=== PATIENT | male | born 1985 | race Caucasian/White ===

== ENCOUNTER 2018-07-14 01:09 | Emergency (ER) | payer MEDICAID, SELFPAY ==
[2018-07-14 01:11] VITALS: BP 119/83; PULSE 83; RESP 16; TEMP 36.1; O2SAT 100; BMI 20.4
--- NOTE | 2018-07-14 02:25 | RAD_ITS ---
STUDY: X-RAY - RIGHT HAND REASON FOR EXAM: Male, 32 years old. Pain TECHNIQUE: 3 view(s) of the hand. COMPARISON: None. FINDINGS: Normal radiocarpal articulation. Normal distal radioulnar joint. Normal visualized carpal bones. Normal carpal articulations Normal carpometacarpal articulation of the thumb. Normal second through fifth carpometacarpal joints. Normal metacarpi. Normal metacarpophalangeal joint of the thumb. Normal interphalangeal joint of the thumb. Normal proximal and distal phalanges of the thumb. Normal metacarpophalangeal joints of the second through fifth fingers. Normal proximal and distal interphalangeal joints of the second through fifth fingers. Normal phalanges of the second through fifth fingers. There is generalized soft tissue swelling. RAD/Hand Min 3 Views IMPRESSION: There is generalized soft tissue swelling. There is NO acute bony abnormality. Electronically Signed: Sorin Fiore MD at 3:33 EDT , Service support ,
--- NOTE | 2018-07-14 03:08 | ED.VIS.GEN ---
History of Present Illness Chief Complaint: Edema Informant: Patient Onset: Days - 10 Context: Gradual Onset Timing: Intermittent Quality: sore, swollen Location: right hand Current Severity: Moderate Maximum Severity: Moderate Worsened by: using hand Relieved by: remaining still Associated Symptoms: redness Narrative: Patient states of the past 10 days, he has been experiencing right hand pain, swelling, redness that has started out of nowhere. He denies any injury. He has a history of drug use but states not recently and he has injected nothing into his right hand. He had a tendon injury in 2013 for which she had right hand surgery for but nothing recently. That was done by Dr. hill locally. He states 10 days ago, this occurred and lasted for 3 days or so and then got better on its own, and for the last several days it has been doing it again. He states it is more red and swollen and painful even just in the last 12 hours. He denies any systemic symptoms or fevers or streaking up his arm. States he has been using his hands to do things around the inside of the house but had no injuries, scrapes, foreign bodies, or any other obvious possible explanation for this that he can think of. Prior similar symptoms: No Past Medical History - Allergies and Home Meds Allergies/Adverse Reactions: Allergies No Known Allergies Allergy (Verified 07/14/18 01:15) Primary Care Physician: Calvin Hill MD [STAFF PHYSICIAN] - 3-5 Days Past Medical History: None Smoking Status: Current every day smoker Drugs: None - denies Review of Systems General: Denies: Chills, Fever Musculoskeletal: Reports: Swelling - R hand only, Extremity Pain - R hand only Skin: Reports: Rash - redness R hand. no other rashes.. Denies: Abrasions, Wounds Neurological: Reports: Parasthesia - off and on r hand/fingers. Denies: Headache, Weakness Physical Exam Vital Signs/Narrative: Vital Signs Temp Pulse Resp BP Pulse Ox 07/14/18 01:11 97.0 F L 83 16 119/83 H 100 Inital Vital Signs reviewed: Yes General: Well nourished, Well developed Head: Normocephalic, Atraumatic Extremities: Tenderness - and swollen/erythemetous dorsal entire R hand. no fluctuance or crepitance / SQ emphysema. no clear nidus for infection. hand is warm c/w forearm. Skin: No rash, - - R hand dorsum is erythematous diffusely. no lymphangitis. Neurological: Alert, Oriented x3, Cranial nerves II-XII grossly intact, Normal Strength, Normal Sensation Psychological: - - anxious. trouble keeping his RUE still for exam. Diagnostic/Tx/Re-eval Clinical Impression(s) from Imaging Studies Hand X-Ray 07/14/18 02:25 IMPRESSION: There is generalized soft tissue swelling. There is NO acute bony abnormality. Electronically Signed: Sorin Fiore MD at 3:33 EDT , Service support , - Medical Decision Making X-ray is normal. Will place him on Keflex to treat infection/cellulitis until proven otherwise, he is advised to follow-up with nuno, or return if worse. I do not think further testing is indicated or necessary at this time, as the test that I have available to me at this hour are unlikely to change this treatment given his lack of any other systemic symptoms or lymphangitis. ED Disposition - Plan for ED Patient: Disposition: Home or Assisted Living Chief Complaint: Edema Diagnosis: Cellulitis of hand, right Instructions: ED Infec Skin Cellulitis Prescriptions: RX: Cephalexin 500 mg PO 4X/DAY #40 cap Referrals: Calvin Hill MD [STAFF PHYSICIAN] - 3-5 Days
[2018-07-14] MEDS: Cephalexin 250 MG Capsule 500 MG PO (03:19)
[2018-07-14 03:21] VITALS: RESP 16
== END 2018-07-14 03:21 | disposition home or self-care (01) ==
PROVIDERS: Emergency Provider Emergency Medicine
DX: L03.113 Cellulitis of right upper limb (principal); B96.89 Other specified bacterial agents as the cause of diseases classified elsewhere; F17.200 Nicotine dependence, unspecified, uncomplicated
CPT/HCPCS: 73130; 99283

== ENCOUNTER → 2018-07-27 12:20 | Outpatient (CLI) | payer MEDICAID, SELFPAY ==
--- NOTE | 2018-07-27 12:28 | RAD_ITS ---
STUDY: X-RAY - RIGHT HAND REASON FOR EXAM: Swelling across metacarpals, fall. TECHNIQUE: 3 view(s) of the hand. COMPARISON: Radiographs 07/14/2018. FINDINGS: Normal radiocarpal articulation. Normal distal radioulnar joint. Normal visualized carpal bones. Normal carpal articulations Normal carpometacarpal articulation of the thumb. Normal second through fifth carpometacarpal joints. Normal metacarpi. Normal metacarpophalangeal joint of the thumb. Normal interphalangeal joint of the thumb. Normal proximal and distal phalanges of the thumb. Normal metacarpophalangeal joints of the second through fifth fingers. Normal proximal and distal interphalangeal joints of the second through fifth fingers. Normal phalanges of the second through fifth fingers. There is soft tissue swelling at the dorsal aspect of the proximal hand. RAD/Hand Min 3 Views IMPRESSION: Soft tissue swelling. No demonstrated fracture. Electronically Signed: Robbi Friend MD at 13:37 EST Tel , Service support ,
--- NOTE | 2018-07-27 12:29 | RAD_ITS ---
STUDY: X-RAY - RIGHT WRIST REASON FOR EXAM: Male, 33 years old. Soft tissue swelling following a fall. TECHNIQUE: 3 view(s) of the wrist were obtained. COMPARISON: None. FINDINGS: Normal visualized distal radius and ulna. Normal radiocarpal articulation. Normal distal radioulnar articulation. Normal carpal bones. Normal carpal articulations. Normal carpometacarpal articulation of the thumb. Normal second through fifth carpometacarpal articulations. Normal visualized metacarpal bones. Soft tissue swelling. RAD/Wrist min 3 Views IMPRESSION: Soft tissue swelling. Electronically Signed: Donald Bernal MD at 13:27 EST Tel [phone], Service support ,
== END ==
PROVIDERS: Referring Provider Physician Assistant; Visit Provider Physician Assistant
DX: M79.641 Pain in right hand (principal); M79.89 Other specified soft tissue disorders; M25.531 Pain in right wrist; M25.431 Effusion, right wrist
CPT/HCPCS: 73110; 73130

== ENCOUNTER → 2018-11-07 18:33 | Outpatient (CLI) | payer MEDICAID, SELFPAY ==
[2018-11-07 21:57] LABS: M R Staph aureus DNA By PCR Negative (Negative); Probe Check PASS; Specimen Processing Control PASS; Staph aureus DNA By PCR NEGATIVE (Negative)
== END ==
PROVIDERS: Referring Provider Podiatrist; Visit Provider Podiatrist
DX: S90.852A Superficial foreign body, left foot, initial encounter (principal)
CPT/HCPCS: 87070; 87075; 87077; 87186; 87205; 87640

== ENCOUNTER 2019-11-21 13:40 | Emergency (ER) | payer MEDICAID, SELFPAY ==
[2019-11-21 13:42] VITALS: BP 121/96; PULSE 92; RESP 17; TEMP 36.9; O2SAT 100; BMI 22.5
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
== END 2019-11-21 15:42 | disposition home or self-care (01) ==
LOC: ED 15:40
PROVIDERS: Emergency Provider Emergency Medicine
DX: F22 Delusional disorders (principal); Z72.0 Tobacco use
CPT/HCPCS: 99283

== ENCOUNTER 2020-01-20 15:11 | Emergency (ER) | payer MEDICAID, SELFPAY ==
[2020-01-20] VITALS (10 sets, daily range): BP systolic 101–159; BP diastolic 72–127; PULSE 81–126; RESP 14–24; TEMP 36.8–37.1; O2SAT 96–100; BMI 21.2
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
[2020-01-20] MEDS: Ziprasidone IM 20 MG/ML VIAL IM (15:30)
[2020-01-20 15:48] LABS: Absolute Lymphocyte Count 1.62 X10^3/uL (0.83-4.51); Absolute Neutrophil Count 5.3 X10^3/uL (2.0-7.7); Basophil# 0.05 X10^3/uL; Basophil% 0.6 % (0-1); Eosinophil# 0.13 X10^3/uL; Eosinophils% 1.7 % (0-5); Hematocrit 39.5 % (40-54); Hemoglobin 13.5 g/dL (13.0-16.5); Lymphocyte # 1.62 X10^3/ul (4.0); Lymphocyte % 20.7 % (19-41); Mean Corp Hgb Conc 34.2 g/dL (32-36); Mean Corpuscular Hgb 30.3 pg (27.0-32.0); Mean Corpuscular Volume 88.6 fL (80-94); Mean Platelet Vol. 10.7 fl (6.2-12.0); Monocyte# 0.76 X10^3/uL; Monocyte% 9.7 % (0-10); NRBC Flagged by Analyzer 0 % (0-5); Neutrophil # 5.25 X10^3/uL (2.7-7.7); Platelet Count 174 K/mm3 (150-450); RBC Distribution Width SD 42.3 fl (35.1-43.9); Red Blood Count 4.46 M/mm3 (4.6-6.2); White Blood Count 7.8 K/mm3 (4.4-11.0)
[2020-01-20 16:03] LABS: Acetaminophen (Tylenol) Level < 2.0 ug/mL (10.0-30.0); Salicylate 3.4 mg/dL (2.8-20.0)
[2020-01-20 16:05] LABS: ALB/GLOB Ratio 1.4 RATIO (0.9-2.4); AST(SGOT) 32 U/L (15-37); Alanine Aminotransfer ALT/SGPT 33 U/L (16-61); Albumin, Serum 4.2 g/dL (3.2-5.0); Alkaline Phosphatase 58 U/L (45-117); Anion Gap 5 (5-15); BUN 15 mg/dL (7-18); BUN/Creat Ratio 20.4 RATIO (10-20); Chloride 110 mmol/L (98-107); Creatinine, Serum 0.74 mg/dL (0.70-1.30); EST Glomerular Filtration Rate 129 mL/min (>60); Est Glom Filt Rate - Afr Amer 156 mL/min (>60); Estimated Creatinine Clearance 148.81 ml/min; Glucose 95 mg/dL (74-106); Potassium 4.3 mmol/L (3.5-5.1); Protein, Total 7.2 g/dL (6.4-8.2); Sodium Level 140 mmol/L (136-145)
[2020-01-20 16:21] LABS: Amphetamine Urine VISTA NEGATIVE (<1000 ng/mL); Barbiturate Urine VISTA NEGATIVE (< 200 ng/mL); Benzodiazepine Urine VISTA NEGATIVE (< 200 ng/mL); Cocaine Urine VISTA NEGATIVE (< 300 ng/mL); Ecstacy Urine VISTA NEGATIVE (< 500 ng/mL); Methadone Urine VISTA NEGATIVE (< 300 ng/mL); PCP Urine VISTA NEGATIVE (< 25 ng/mL); THC Urine VISTA NEGATIVE (< 50 ng/mL); Vista UDS pH Range 5
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
--- NOTE | 2020-01-20 17:06 | NURSING ---
FAXED CHART TO [facility]
[2020-01-20] MEDS: Albuterol 2.5 MG/3 ML VIAL.NEB. INHALATION (19:38)
[2020-01-20] MEDS: DiphenhydrAMINE 25 MG Capsule 50 MG PO (20:35)
--- NOTE | 2020-01-20 21:28 | NURSING ---
ACCEPTED TO [facility] BY DR. GARCIA 1500 UNIT [phone]
== END 2020-01-20 22:26 ==
LOC: ED 16:12
PROVIDERS: Emergency Provider Emergency Medicine
DX: F30.9 Manic episode, unspecified (principal); R45.851 Suicidal ideations
CPT/HCPCS: 36415; 80053; 80307; 80320; 80329; 85025; 94640; 96372; 99285; G0480; J3486

== ENCOUNTER → 2020-02-21 14:59 | Outpatient (CLI) | payer MEDICAID, SELFPAY ==
[2020-01-20 15:13] VITALS: BMI 21.2
[2020-02-21 17:27] LABS: Absolute Lymphocyte Count 1.76 X10^3/uL (0.83-4.51); Absolute Neutrophil Count 4.1 X10^3/uL (2.0-7.7); Basophil# 0.05 X10^3/uL; Basophil% 0.7 % (0-1); Eosinophil# 0.25 X10^3/uL; Eosinophils% 3.6 % (0-5); Hematocrit 42.7 % (40-54); Hemoglobin 14.4 g/dL (13.0-16.5); Lymphocyte # 1.76 X10^3/ul (4.0); Lymphocyte % 25.1 % (19-41); Mean Corp Hgb Conc 33.7 g/dL (32-36); Mean Corpuscular Hgb 30.6 pg (27.0-32.0); Mean Corpuscular Volume 90.9 fL (80-94); Monocyte% 11.4 % (0-10); NRBC Flagged by Analyzer 0 % (0-5); Neutrophil # 4.13 X10^3/uL (2.7-7.7); Neutrophil % 58.9 % (47-70); Platelet Count 193 K/mm3 (150-450); RBC Distribution Width CV 12.6 % (11.6-14.6); RBC Distribution Width SD 42.2 fl (35.1-43.9)
[2020-02-21 17:42] LABS: Vitamin B12 712 pg/mL (211-911); Vitamin D,25 Hydroxy 27.5 ng/mL
[2020-02-21 17:50] LABS: ALB/GLOB Ratio 1.1 RATIO (0.9-2.4); AST(SGOT) 38 U/L (15-37); Alanine Aminotransfer ALT/SGPT 36 U/L (16-61); Alkaline Phosphatase 64 U/L (45-117); Anion Gap 7 (5-15); BUN 15 mg/dL (7-18); BUN/Creat Ratio 18.8 RATIO (10-20); Calcium,Total 8.8 mg/dL (8.5-10.1); Chloride 102 mmol/L (98-107); EST Glomerular Filtration Rate 118 mL/min (>60); Est Glom Filt Rate - Afr Amer 143 mL/min (>60); Globulin 3.5 g/dL (2.2-4.2); Glucose 63 mg/dL (74-106); Potassium 4.6 mmol/L (3.5-5.1); Protein, Total 7.5 g/dL (6.4-8.2); Sodium Level 136 mmol/L (136-145); Thyroid Stim Hormone (TSH) 0.93 uIU/mL (0.358-3.74)
[2020-02-21 18:07] LABS: Amphetamine Urine VISTA NEGATIVE (<1000 ng/mL); Barbiturate Urine VISTA NEGATIVE (< 200 ng/mL); Benzodiazepine Urine VISTA NEGATIVE (< 200 ng/mL); Cocaine Urine VISTA NEGATIVE (< 300 ng/mL); Ecstacy Urine VISTA NEGATIVE (< 500 ng/mL); Methadone Urine VISTA NEGATIVE (< 300 ng/mL); PCP Urine VISTA NEGATIVE (< 25 ng/mL); THC Urine VISTA NEGATIVE (< 50 ng/mL); Vista UDS pH Range 5
== END ==
PROVIDERS: PCP Family Medicine; Referring Provider Family Medicine; Visit Provider Family Medicine
DX: F19.20 Other psychoactive substance dependence, uncomplicated (principal); R53.83 Other fatigue
CPT/HCPCS: 36415; 80053; 80307; 82306; 82607; 84443; 85025

== ENCOUNTER 2020-06-23 12:24 | Emergency (ER) | payer MEDICAID, SELFPAY ==
[2020-01-20 15:13] VITALS: BMI 21.2
[2020-06-23 12:24] VITALS: BP 159/102; PULSE 113; RESP 20; TEMP 36.6; O2SAT 97; BMI 21.1
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
[2020-06-23] MEDS: Diphth,Pertuss(Acell),Tet Vac 0.5 ML Vial IM (15:39)
[2020-06-23] MEDS: Silver Sulfadiazine 1% Crm 50 gm Bottle 1 APPLIC TOPICAL (15:40)
[2020-06-23 15:54] VITALS: BP 148/88; PULSE 105; RESP 17; O2SAT 96
== END 2020-06-23 15:55 | disposition home or self-care (01) ==
PROVIDERS: Emergency Provider Emergency Medicine; PCP Family Medicine
DX: T24.002A Burn of unspecified degree of unspecified site of left lower limb, except ankle and foot, initial encounter (principal); W39.XXXA Discharge of firework, initial encounter
CPT/HCPCS: 90471; 90715; 99282

== ENCOUNTER 2020-07-19 14:09 | Emergency (ER) | payer MEDICAID, SELFPAY ==
[2020-07-19 14:10] VITALS: BP 111/82; PULSE 117; RESP 18; TEMP 35.7; O2SAT 98; BMI 21.7
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
--- NOTE | 2020-07-19 14:20 | ED.VISSUMM ---
- ER Visit Summary Date of Service: 07/19/20 Chief Complaint: Left ankle pain and swelling History of Present Illness: The patient is a 35 M denies any significant past medical history. Says he has never broken a bone before. Patient states he jumped off a truck bed last night and when he landed on cement his ankle twisted and since then has had pain and swelling. He denies any other injuries. Physical Examination: Young male no acute distress vital signs stable afebrile. H EENT exam unremarkable atraumatic. Pupils round reactive light. C-spine nontender. Lungs clear to auscultation. Heart regular rhythm rate about 110 no murmur. Chest wall nontender. Abdomen soft nontender. Pelvic girdle intact. Remedies moves all 4. Neurovascular intact. Right lower extremity nontender normal range of motion. Left hip and knee are nontender nonswollen normal range of motion. Left ankle moderately swollen. On both sides. DP pulse intact. Achilles tendon intact. Calcaneous nontender. Midfoot to toes nontender. Normal cap refill. Able to wiggle his toes. He is able to do dorsi and plantar flexion. He has normal touch sensation in his toes. Neurologically is awake and alert with no focal motor or sensory deficits. Test Results: Left ankle x-ray 3 views read by myself and the radiologist shows significant soft tissue swelling but no fracture or dislocation. I went over the films with the patient. Walking boot and crutches. Emergency Department Course and Treatment: Patient has impressively swollen left ankle after an injury last night. Concern for ankle fracture versus other etiologies. Foot is neurovascular intact. X-ray pending. He did not want anything for pain at this time. Treatment Plan: Ice and elevate. Tylenol Motrin for pain and swelling. Walking boot and crutches. Increase activity as tolerated. Follow-up with podiatry Dr. Donnelly wanting if not improving. Patient understands that he may have a torn ligament or tendon cannot be determined at this time if he is not improving he needs a follow-up. Disposition: Discharge Impression: Acute left ankle sprain This note was generated with [email or web address] dictation software. It may contain incorrect words, spelling, and punctuation that were not noted in review of the chart prior to signing ED Disposition - Plan for ED Patient: Referrals: Dewayne Norris MD [Primary Care Provider] -
--- NOTE | 2020-07-19 15:18 | DCINST.ED_ITS ---
ED Disposition - Plan for ED Patient: Disposition: Home or Assisted Living Instructions: ED Sprain Ankle W X Ray Referrals: Andrzej Curry DPM [STAFF PHYSICIAN] - 1 Week if not improving Additional Instructions: Ice and elevate to decrease pain and swelling. Motrin and Tylenol for swelling and pain. No weightbearing and increase activity and weightbearing as tolerated. Follow-up with either your doctor of your choice or the briquette machine operator Dr. Andrzej Curry if this is not improving in a week. There could be other injuries that are not seen on x-ray such as a torn tendon or ligament.
[2020-07-19 15:38] VITALS: BP 110/78; PULSE 91; RESP 15; O2SAT 98
== END 2020-07-19 15:39 | disposition home or self-care (01) ==
LOC: ED 15:19
PROVIDERS: Emergency Provider Emergency Medicine; PCP Family Medicine
DX: S93.402A Sprain of unspecified ligament of left ankle, initial encounter (principal); F17.200 Nicotine dependence, unspecified, uncomplicated; W19.XXXA Unspecified fall, initial encounter
CPT/HCPCS: 73610; 99283

== ENCOUNTER 2021-01-27 10:42 | Emergency (ER) | payer MEDICAID, SELFPAY ==
[2021-01-27 10:43] VITALS: BP 157/102; PULSE 106; RESP 15; TEMP 36.4; O2SAT 98; BMI 22.4
--- NOTE | 2021-01-27 11:02 | EX.ED.UPPERE ---
HPI History of Present Illness Chief Complaint: Upper Extremity Injury Informant: patient Narrative Narrative: 35-year-old male states that yesterday he was mowing the lawn when he lifted up the grass shoot toClear it in the blades hit his right index and long finger. He states he went to a grinding mill operator who said that he may lose the skin. He states he just wanted to go to bed so he went to bed when he woke up this morning his fingers are more swollen and painful. He notes his last tetanus shot was last year. [facility] Medical History Anxiety Bipolar disorder Depression Home Medications cephalexin 500 mg PO Q6 #28 capsule 01/27/21 [Rx Last Taken Unknown] hydrocodone-acetaminophen 1 tab PO Q6H PRN PRN 3 Days #10 tablet 01/27/21 [Rx Last Taken Unknown] olanzapine 10 mg PO QHS 01/27/21 [History Last Taken Unknown] Allergy/AdvReac Type Severity Reaction Status Date / Time No Known Allergies Allergy Verified 01/27/21 10:45 Family History (Updated 07/27/18 @ 12:09 by Lashay Chopra) Other Glaucoma no surgical history Social History Smoking Status: Current every day smoker alcohol intake: current Alcohol type: hard liquor ROS ROS ED Constitutional Constitutional ED: Denies chills or weight loss Eyes Eyes: Denies change in vision or diplopia ENT ENT ED: Denies ear pain, rhinorrhea or sore throat Cardiovascular Cardiovascular: Denies chest pain, orthopnea, palpitations or racing heartbeat Respiratory/Chest Respiratory/Chest: Denies cough, dyspnea or orthopnea Gastrointestinal Gastrointestinal: Denies abdominal pain, diarrhea, nausea or vomiting Genitourinary Genitourinary ED: Denies dysuria, hematuria or urinary frequency Musculoskeletal Musculoskeletal: Reports other Details: Right index and long finger pain ; Denies arthralgias or myalgias Integumentary Reports Abrasions; Denies abscess or rash Neurologic Neurologic: Denies headache(s) or weakness Psychiatric Psychiatric: Denies anxiety, depression, suicidal ideation or suicidal thoughts Endocrine Endocrinology: Denies polydipsia, polyphagia or polyuria Allergic/Immunologic Allergic/Immunologic ED: Denies mouth swelling, tongue swelling or urticaria EXAM Physical Exam Const Vital Signs: 01/27/21 10:43 Temperature 97.6 F L Temperature Source Temporal Pulse Rate 106 H Respiratory Rate 15 Blood Pressure 157/102 H Blood Pressure Mean 120 Pulse Ox 98 Oxygen Delivery Method Room Air Positive well nourished and well developed General Appearance ED: well developed HEENT Reports normocephalic, head/scalp atraumatic and moist mucous membranes Eyes PERRL and EOMs intact bilaterally Neck no lymphadenopathy, supple and no JVD Resp normal respiratory effort and clear to auscultation bilaterally Cardio regular rate, regular rhythm and no murmurs GI normal to inspection, nondistended, normoactive bowel sounds and non-tender Palpation: soft Back/Spine no CVA tenderness and normal ROM Extremity normal to inspection Extremity Narrative: Right index and long finger demonstrates subungual hematomas of about 60%. There is a superficial abrasion just proximal to the index finger Nail. The fat pads are swollen and ecchymotic.Sensation is preserved General Extremety ED: Negative for edema General Extremity: Negative for edema Neuro oriented x3 and CN's II-XII intact bilaterally Sensorium / Orientation: alert Motor Exam: strength 5/5 throughout Psych mental status grossly normal Mood & Affect: Negative for depressed or tearful Skin no rashes or lesions noted and no wounds MDM MDM MDM Narrative Medical decision making narrative: My impression of the plain films of the right hand are nondisplaced fractures of the distal phalanx of the index and long finger. Patient will be given a prescription for Keflex and [place]. He is to Splint the fingers and follow-up with orthopedics. Discharge Plan Triage Chief Complaint: Upper Extremity Injury ED Provider: Sergey Esparza Dx/Rx/DC Orders Clinical Impression: Subungual hematoma of index finger, Subungual hematoma of right middle finger, Closed fracture of distal phalanx of index finger, Closed fracture of distal phalanx of middle finger Instructions: Subungual Hematoma Prescriptions: New cephalexin [cephalexin] 500 MG capsule 500 mg PO Q6 Qty: 28 RF: 0 hydrocodone-acetaminophen [hydrocodone-acetaminophen] 1 TABLET tablet 1 tab PO Q6H PRN PRN (Reason: Pain) 3 Days Qty: 10 RF: 0 No Action olanzapine 10 mg tablet 10 mg PO QHS RF: 0 Primary Care Provider: Dewayne Norris Referrals: Dewayne Norris MD [Primary Care Provider] - 1-2 Weeks Antoine Cao MD [STAFF PHYSICIAN] - As soon as possible Disposition Disposition: Home, self care
--- NOTE | 2021-01-27 11:05 | RAD_ITS ---
STUDY: X-RAY - RIGHT HAND REASON FOR EXAM: Male, 35 years old. Injury to the second and third digits. TECHNIQUE: 3 view(s) of the hand. COMPARISON: None. FINDINGS: Normal radiocarpal articulation. Normal distal radioulnar joint. Normal visualized carpal bones. Normal carpal articulations Normal carpometacarpal articulation of the thumb. Normal second through fifth carpometacarpal joints. Normal metacarpi. Normal metacarpophalangeal joint of the thumb. Normal interphalangeal joint of the thumb. Normal proximal and distal phalanges of the thumb. Normal metacarpophalangeal joints of the second through fifth fingers. Normal proximal and distal interphalangeal joints of the second through fifth fingers. Comminuted nondisplaced fracture of the distal phalanx of the third digit with overlying soft tissue swelling. Nondisplaced fracture of the tuft of the distal phalanx of the index finger. Soft tissue swelling. RAD/Hand Min 3 Views IMPRESSION: Nondisplaced fractures of the distal phalanges of the second and third digits. Soft tissue swelling. Electronically Signed: Donald Bernal MD at 11:33 EDT , Service support ,
== END 2021-01-27 12:24 | disposition home or self-care (01) ==
PROVIDERS: Emergency Provider Emergency Medicine; PCP Family Medicine
DX: S60.021A Contusion of right index finger without damage to nail, initial encounter (principal); S60.031A Contusion of right middle finger without damage to nail, initial encounter; S62.630A Displaced fracture of distal phalanx of right index finger, initial encounter for closed fracture; S62.632A Displaced fracture of distal phalanx of right middle finger, initial encounter for closed fracture; F17.200 Nicotine dependence, unspecified, uncomplicated; X58.XXXA Exposure to other specified factors, initial encounter
CPT/HCPCS: 73130; 99283

== ENCOUNTER 2021-09-07 11:20 | Emergency (ER) | payer MEDICAID, SELFPAY ==
[2021-09-07 11:21] VITALS: BP 154/121; PULSE 130; RESP 18; TEMP 36.1; O2SAT 99; BMI 23.7
[2021-09-07 11:30] VITALS: BP 131/109; O2SAT 99
--- NOTE | 2021-09-07 11:37 | RAD_ITS ---
STUDY: X-RAY - RIGHT HAND REASON FOR EXAM: Laceration of the right thumb with a cnc grinder. TECHNIQUE: 3 view(s) of the hand. COMPARISON: Radiographs 01/27/2021. FINDINGS: Normal radiocarpal articulation. Normal distal radioulnar joint. Normal visualized carpal bones. Normal carpal articulations Normal carpometacarpal articulation of the thumb. Normal second through fifth carpometacarpal joints. Normal metacarpi. Normal metacarpophalangeal joint of the thumb. Normal interphalangeal joint of the thumb. Normal proximal and distal phalanges of the thumb. Normal metacarpophalangeal joints of the second through fifth fingers. Normal proximal and distal interphalangeal joints of the second through fifth fingers. There is healed fracture deformity of the third distal phalanx and chronic fracture deformity of the ungual tuft of the second digit. The soft tissue structures are unremarkable. RAD/Hand Min 3 Views IMPRESSION: Healed fracture deformity of the third distal phalanx and chronic fracture deformity of the ungual tuft of the second digit. No demonstrated radiopaque foreign body or acute fracture. Electronically Signed: Robbi Friend MD at 12:11 EST Tel , Service support ,
[2021-09-07] MEDS: Lidocaine 1% (20 ml mdv) 20 ML Vial INFILT (12:18)
--- NOTE | 2021-09-07 14:05 | EDS_ITS ---
HPI History of Present Illness Chief Complaint: Trauma Narrative Narrative: Patient presenting for evaluation secondary to an injury to his right thumb. Patient states that his tetanus status is up-to-date. He was using a angle fusion juncture grinder to try to remove a lock on a door. He reports that it kicked, and he suffered a laceration to his dominant thumb. He denies any numbness or weakness. He reports difficulty with straightening his thumb at the knuckle. Patient denies any history of immunosuppression. No bleeding dyscrasias. Review of systems otherwise negative. [facility] Medical History Anxiety Bipolar disorder Depression Home Medications cefadroxil 1,000 mg PO BID 10 Days #20 tab 09/07/21 [Rx Last Taken Unknown] oxycodone-acetaminophen [Percocet] 1 tab PO Q6H PRN 3 Days #12 tab 09/07/21 [Rx Last Taken Unknown] Allergy/AdvReac Type Severity Reaction Status Date / Time No Known Allergies Allergy Verified 09/07/21 11:22 Family History Other Glaucoma Social History Smoking Status: Current every day smoker tobacco type: cigarettes alcohol intake: current Alcohol type: hard liquor ROS ROS ED Constitutional Constitutional ED: Denies fever(s) Respiratory/Chest Respiratory/Chest: Denies cough or dyspnea Musculoskeletal Musculoskeletal: Denies neck pain Integumentary Reports other Details: Wound to the right thumb Neurologic Neurologic: Reports other Details: Weakness with extension Hematologic/Lymphatic Hematologic/Lymphatic: Denies easy bleeding or easy bruising Allergic/Immunologic Allergic/Immunologic ED: Reports other Details: No immunosuppression EXAM Physical Exam Const Vital Signs: 09/07/21 11:21 09/07/21 11:30 Temperature 97 F L Temperature Source Temporal Pulse Rate 130 H Respiratory Rate 18 Blood Pressure 154/121 H 131/109 H Blood Pressure Mean 132 116 Pulse Ox 99 99 Oxygen Delivery Method Room Air Room Air Positive well nourished and well developed General Appearance ED: well developed HEENT normocephalic and atraumatic Eyes EOMs intact bilaterally Neck full ROM Chest Wall inspection of chest normal Resp normal respiratory effort Cardio regular rhythm Rate: tachycardic Extremity Extremity Narrative: Examination of the patient's right thumb shows a laceration over the interphalangeal joint on the dorsum and ulnar side that is transversely oriented. Patient's has limited extension of the thumb against resistance. Normal flexion. Normal two-point discrimination. MDM MDM MDM Narrative Medical decision making narrative: Patient presented secondary to a thumb injury. Patient has evidence of an extensor tendon laceration. Wound was addressed as noted in the procedure note. Dressing will be placed, patient will be placed in a thumb spica splint. Patient be placed on Duricef. I discussed patient's case with Dr. Hill who did agree to follow the patient up for definitive management of his extensor tendon laceration. Patient understands signs and symptoms which to return. Radiography Diagnostic Testing: Clinical Impression(s) from Imaging Studies Hand X-Ray 09/07/21 11:37 IMPRESSION: Healed fracture deformity of the third distal phalanx and chronic fracture deformity of the ungual tuft of the second digit. No demonstrated radiopaque foreign body or acute fracture. Electronically Signed: Robbi Friend MD at 12:11 EST Tel , Service support , Procedures Other Procedures Procedure(s): Thumb was anesthetized using a digital block as well as some local anesthetic in the patient's laceration. Wound was then copiously irrigated with saline and was scrubbed with Shur-Clens. There was some tissue that appeared to have been cauterized by the heat of the angle fusion juncture grinder, this does not appear to be foreign material. On exploration of the wound does appear that there is a complete laceration of the extensor tendon. Turn[place] was placed. 3-0 nylon suture was utilized and the wound was loosely approximated with #2 sutures. Patient tolerated this well. There was good hemostasis. Discharge Plan Triage Chief Complaint: Trauma Other Complaint: Laceration ED Provider: Jose Abraham Dx/Rx/DC Orders Clinical Impression: Extensor tendon laceration of finger with open wound Instructions: ED Tendon Laceration Prescriptions: New cefadroxil 1 gram tablet 1,000 mg PO BID 10 Days Qty: 20 RF: 0 oxycodone-acetaminophen [Percocet] 5-325 mg tablet 1 tab PO Q6H PRN (Reason: pain) 3 Days Qty: 12 RF: 0 Primary Care Provider: Dewayne Norris Referrals: Dewayne Norris MD [Primary Care Provider] - Calvin Hill MD [STAFF PHYSICIAN] - 1 Day Disposition Disposition: Home, Self Care
[2021-09-07] MEDS: Cefadroxil 500 MG CAPSULE 1000 MG PO (14:39)
[2021-09-07 14:41] VITALS: BP 122/87; PULSE 97; RESP 16; O2SAT 100
== END 2021-09-07 14:46 | disposition home or self-care (01) ==
PROVIDERS: Emergency Provider Emergency Medicine; PCP Family Medicine
DX: S66.221A Laceration of extensor muscle, fascia and tendon of right thumb at wrist and hand level, initial encounter (principal); F17.210 Nicotine dependence, cigarettes, uncomplicated; X58.XXXA Exposure to other specified factors, initial encounter
CPT/HCPCS: 26418; 73130; 99285

== ENCOUNTER 2021-09-10 09:55 | Day surgery (SDC) | payer MEDICAID, SELFPAY ==
[2021-09-10] VITALS (7 sets, daily range): BP systolic 119–136; BP diastolic 84–99; PULSE 87–97; RESP 16; TEMP 35.6–36.4; O2SAT 97–100; BMI 24.5
[2021-09-10] MEDS: Lactated Ringers 1,000 ML 15 ML IV (10:39)
--- NOTE | 2021-09-10 11:45 | TISS_PTH ---
PATIENT: JOHN MARK LOC: [facility] [place][id number] AGE/SX: 36/M ROOM: RE09/10/[address]: Dr. Calvin Hill MD : 1985 BED: DIS: 09/10/2021 SPEC #: [id number] RECD: 09/10/21 14:10 STATUS: ALBERTO REDalila #: [id number] OSVALDO: 09/10/21 11:[address]: Calvin Hill DEPT: SURGICAL PATHOLOGY RECD BY: Margarette Beltre ENTERED: 09/13/21 16:58 SP TYPE: Tissue Bx GEOVANI DR: Dr. Dewayne Norris MD Tissues: TISSUE SURGICALLY REMOVED Procedures: Surgery Specimen Level III HEADER OPERATION: Repair extensor tendon injury thumb proximal to AP joint zone PRE-OP DIAGNOSIS: Injury of extensor muscle, fascia and tendon of right thumb at wrist and hand level; 2.5 cm horizontal laceration dorsum right thumb just proximal to IP joint (zone 2) with extensor pollicis longus injury TISSUE SUBMITTED: Soft tissue right thumb MICROSCOPIC DIAGNOSIS Soft tissue right thumb: Fragments of fibroadipose tissue and fibroconnective tissue with chronic inflammation and reactive changes. LVIIA:cesar 09/15/2021 MICROSCOPIC DESCRIPTION Slides are reviewed. GROSS DESCRIPTION Received in fixative is one container labeled with the patient's name and designated soft tissue right thumb. The specimen consists of multiple pieces of machuca-white soft tissue that in aggregate measure 1.5 x 1.5 x 0.3 cm. The specimen is totally submitted in one cassette. / LIVIA:cesar 09/14/21 TC:5 CPT: 17079
[2021-09-10] MEDS: Lidocaine 1% /Epi 1:100 (20ml) 20 ML Vial (13:39)
--- NOTE | 2021-09-10 13:41 | PCM.HP.BLA ---
History and Physical Date of Admission: 09/10/21 HISTORY OF PRESENT ILLNESS 36 year old man presented to the ED yesterday 09/07/21 because he sustained a laceration to the dorsum right thumb just proximal to the IP joint. He was unable to extend his right thumb at the IP joint. He denied any paresthesias. There was bleeding at the scene that required gauze compression. The injury occurred at home when he was working with a lap grinder to try and remove a lock from a door. The lap grinder kicked back which led to this laceration on his right thumb (Zone 2) injury. X-ray was done in the ED. It showed healed fracture deformity of the third distal phalanx and chronic fracture deformity of the ungual tuft of the second digit. No demonstrated radiopaque foreign body or acute fracture. Patient is right hand dominant. His tetanus status is up-to-date. He denies fever. He denies history of immunosuppression. He presents at this time for further evaluation and treatment. PAST MEDICAL HISTORY Alcohol use Anxiety Asthma Back pain Bipolar disorder Contact with powered lap grinder as cause of accidental injury Depression Injury of head and neck Smoker Unspecified injury of extensor muscle, fascia and tendon of right thumb at wrist and hand level, initial encounter Wears contact lenses PAST SURGICAL HISTORY Hx of hernia repair Hx of surgical procedure Hx of surgical procedure Hx of surgical procedure ALLERGIES No Known Allergies MEDICATIONS cefadroxil oxycodone-acetaminophen [Percocet] atomoxetine FAMILY HISTORY Other - Glaucoma SOCIAL HISTORY Smoking Status: Current every day smoker tobacco type: cigarettes alcohol intake: current Alcohol type: hard liquor REVIEW OF SYSTEMS General - Denies fever, fatigue, and weight loss. Eyes - Denies cataracts and glaucoma. ENT - Denies nasal congestion and sore throat. Endocrine - Denies excessive thirst and urination. Skin - Denies suspicious lesions and skin cancer. Musculoskeletal - Denies joint pain, joint stiffness, weakness of muscles and joints, back pain, and arthritis. Has traumatic laceration dorsum right thumb just proximal to IP joint (zone 2). Neuro - Denies headaches. Cardiovascular - Denies chest pain, fatigue, and shortness of breath with exertion. Psych - Denies anxiety. Has depression. Respiratory - Denies chronic cough and shortness of breath. Patient has asthma. Patient is a smoker. Gastrointestinal - Denies nausea, vomiting, diarrhea, and constipation. Hematologic - Denies abnormal bruising and bleeding. Genitourinary - Denies hematuria and urinary frequency. PHYSICAL EXAMINATION General - Alert and Oriented. HEENT - PERRL. EOMI. Throat is clear. Neck - Supple and nontender. No cervical adenopathy. Lungs - Clear to auscultation. Heart - Regular rate and rhythm. Abdomen - Soft and nondistended. Extremities - FROM left upper extremity. No axillary adenopathy. Radial pulses are palpable. Patient is right hand dominant. On the right thumb on the dorsal aspect is a horizontal laceration with extension onto the ulnar side of the thumb. Measures 2.5 cm. He is able to extend his other fingers against resistance. He is unable to actively extend his right thumb at the IP joint. Mild swelling noted. No sensory deficits to pinprick. Fingers are warm with good capillary refill. Neuro - CN II-XII grossly intact. Psych - Normal mood and affect. ASSESSMENT 1. 2.5 cm horizontal laceration dorsal aspect right thumb just proximal to the IP joint crease (Zone 2) with extensor tendon injury. 2. Contact with powered lap grinder as cause of accidentally injury. 3. Smoker. PLAN Patient sustained a laceration to his right thumb on the dorsal aspect just proximal to the IP joint (zone 2), and he is unable to extend his right thumb at the IP joint. Recommend operative intervention with exploration of the wound and extending the laceration in a zig zag fashion both proximally and distally in order to get maximal exposure of the injury in order to repair it. Surgery would take place under general anesthesia and tourniquet control on an outpatient basis. Postoperatively he will have a plaster splint from the OR. He will then have a silastic splint made in OT which is better tolerated since it has velcro straps so it will also be easier to take the splint off when washing her right thumb. Then reapply it. He will also need OT for therapy when the tendon has healed to minimize stiffness, for range of motion exercises, strengthening, and edema management. Back in 2013, he sustained flexor tendon laceration (FDP) to the right small finger and the right ring finger. They were repaired. He noticed a pop sensation. The tendon had ruptured and required secondary repair. He was not the most compliant patient at the time. He states he can make a fist with the right hand. The fingers (small and ring) cannot flex the DIP joint completely when making a fist. It doesnt't affect his activities of daily living. The DIP joints can be passively moved. After his right thumb injury has healed, will consider secondary reconstruction on his right small finger and right ring finger. A tenolysis can be done . That can weaken the tendon. Too much strenuous exercise can risk re-injuring the tendon. Can always open up the amauri system to help with the gliding of the repaired tendon. Can reconstruct the amauri if necessary with autogenous tissue or can use acellular dermal matrix graft. Patient was informed of the risks and complications of the procedure including alternatives to surgery. These were discussed with the patient personally. Patient voices understanding and wishes to proceed. Some of the risks and complications were included in a form from the [employer]. Some of the risks and complications that were discussed included but were not inclusive of failure to diagnose including symptom relief, pain, infection, numbness, stiffness, loss of digit, RSD (CRPS), need for further surgery, contracture, and wound healing problems. Encouraged patient to stop smoking as it may have deleterious effects on wound healing. We discussed the current risks associated with COVID-19. While it is understood that there is a community spread of COVID-19, the risk of luis COVID-19 while at [facility] ([facility]) is very low; however, the risk cannot be completely mitigated because of the community spread of the disease. We discussed in detail the risk of exposure to and/or potential harm posed by the COVID-19 virus with having a surgery/procedure at this time versus the risk of delaying the surgery/procedure. It is not possible to know either the risk of delaying the surgery or procedure or chance of getting an infection with perfect accuracy, but a joint decision was made to proceed at this time with the scheduled surgery/procedure as indicated on the consent form. Patient was notified that we will need to comply with any screening or testing [facility] wishes to perform or that surgery may be delayed for any positive results. Procedure Criteria Procedure Type: Elective COVID Risk Discussion: The surgeon/proceduralist and patient have discussed in detail the risk of exposure to and/or potential harm posed by the COVID-19 virus with having a surgery/procedure at this time versus the risk of delaying the surgery/procedure. It is not possible to know either the risk of delaying the surgery or procedure or chance of getting an infection with perfect accuracy, but a joint decision was made between the patient and the surgeon/proceduralist to proceed at this time with the scheduled surgery/procedure as indicated on the consent form.
[2021-09-10] MEDS: Mupirocin Ointment 22gm Tube 1 APPLIC (13:43)
--- NOTE | 2021-09-10 13:44 | OP.PCM_ITS ---
Problems Associated Problem List Diagnoses (1) Unspecified injury of extensor muscle, fascia and tendon of right thumb at wrist and hand level, initial encounter: (2) Injury of digital nerve of right thumb, initial encounter: (3) Contact with powered finish grinder as cause of accidental injury: (4) Smoker: Report of Operation Date of Procedure: 09/10/21 Pre-Operative Diagnosis: 1. 2.5 cm horizontal laceration dorsal aspect right thumb just proximal to the IP joint crease (Zone 2) with extensor tendon injury. 2. Contact with powered finish grinder as cause of accidentally injury. 3. Smoker. Post-Operative Diagnosis: 1. 2.5 cm horizontal laceration dorsal aspect right thumb just proximal to the IP joint crease (Zone 2) with extensor pollicis longus (EPL) tendon injury. 2. Contact with powered finish grinder as cause of accidentally injury. 3. Smoker. 4. Dorsal ulnar sensory branch of superficial sensory branch radial nerve injury to right thumb. Surgery/Procedure Performed:: Repair extensor pollicis longus (EPL) tendon injury dorsum right thumb just proximal to IP joint (zone 2). Epineural repair dorsal ulnar sensory branch of superficial sensory branch radial nerve to right thumb. Description of Surgical Findings:: 36 year old man presented to the ED yesterday 09/07/21 because he sustained a laceration to the dorsum right thumb just proximal to the IP joint. He was unable to extend his right thumb at the IP joint. He denied any paresthesias. There was bleeding at the scene that required gauze compression. The injury occurred at home when he was working with a finish grinder to try and remove a lock from a door. The finish grinder kicked back which led to this laceration on his right thumb (Zone 2) injury. X-ray was done in the ED. It showed healed fracture deformity of the third distal phalanx and chronic fracture deformity of the ungual tuft of the second digit. No demonstrated radiopaque foreign body or acute fracture. Patient is right hand dominant. His tetanus status is up-to-date. He denies fever. He denies history of immunosuppression. Patient was informed of the risks and complications of the procedure including alternatives to surgery. These were discussed with the patient personally. Patient voices understanding and wishes to proceed. Some of the risks and complications were included in a form from the [employer]. Some of the risks and complications that were discussed included but were not inclusive of failure to diagnose including symptom relief, pain, infection, numbness, stiffness, loss of digit, RSD (CRPS), need for further surgery, contracture, and wound healing problems. Encouraged patient to stop smoking as it may have deleterious effects on wound healing. Total tourniquet time - 72 minutes. Surgeon: Calvin Hill circuit board drafter: Dania Abreu Type of Anesthesia: General Specimen's removed: Dorsum right thumb soft tissue exudate to Pathology and Microbiology. Drains: None. Estimated Blood Loss (mL): 2. Description of Procedure: Patient was taken to OR in supine position and was placed under general anesthesia. A tourniquet was placed. The right hand was prepped and draped in the usual fashion. SCD's were placed for DVT prophylaxis. Perioperative antibiotics were given intravenously. I elevated the right arm and wrapped it with an Esmarch bandage as the tourniquet was elevated to 250 mmHg. Using xylocaine with epinephrine, the right thumb was infiltrated as a digital metacarpal block which will help with postoperative pain relief. Under loupe magnification, I extended the incision both proximally and distally in a zig zag fashion. Skin flaps were elevated at the level of the extensor tendon. The skin flaps were retracted and held in place with 5-0 Prolene suture. I dissected down to the extensor pollicis longus (EPL) tendon and it was transected. There was some exudate present that was excised and debrided as the tendon ends were freed in preparation for repair. The EPL tendon was repaired using 4-0 Nylon core suture using modified Mott technique. The outer epitendinous layer was approximated with 6-0 Prolene simple running suture. The skin laceration had extended ulnarly so I dissected out the dorsal ulnar sensory branch of superficial sensory branch radial nerve to the right thumb. It was noted that this sensory nerve was transected as well. Using microscopic instruments, I freed up some surrounding soft tissue to allow primary closure without tension. An epineural repair of the nerve was done using 8-0 Nylon simple interrupted sutures. Good approximation was noted without tension. I used 6 sutures for the repair. I dissected out the dorsal radial sensory branch of superficial sensory branch radial nerve to the right thumb, and it was intact and preserved. The exudate that was excised and debrided was sent to Pathology for analysis to rule out carcinoma and to Microbiology for culture. A positive culture will necessitate antibiotic therapy. The tourniquet was released after 72 minutes. Mild bleeding was easily controlled with gauze compression. The wound was irrigated with saline. The wound was then closed with 5-0 Prolene simple interrupted sutures asnd vertical mattress interrupted sutures. Antibiotic ointment was applied to the suture lines followed by Xeroform gauze and 2x2 gauze and a Kerlix gauze. A thumb spica plaster splint was applied followed by an jazmin wrap. Patient tolerated the procedure well and was sent to PACU in satisfactory condition. Patient will be sent home on antibiotics and pain medication. He will keep his right hand elevated during the initial postoperative period. Patient will followup in a week for a wound check and for discussion of the pathology report and for discussion of the microbiology culture report. A positive culture will necessitate antibiotic therapy. The sutures will be removed in two weeks. He will be sent to OT for the formation of a silastic splint with velcro straps so it will be easier to remove during the day or evening. Besides the splint, at the appropriate time, they will start range of motion exercises, strengthening, and edema management. Grafts/Implants Used: None. Complications None. Admit VTE Documentation VTE Present on Admission: No VTE Mechan Device Prophylaxis: SCD's VTE Pharm Prophylaxis ordered?: No Addendum Addendum: Surgery Charges CPT - 45592 ICD-10 - S66.201A, S64.31xA, W31.1xxA, F17.200 85611 S64.31xA, S66.201A, W31.1xxA, F17.200
--- NOTE | 2021-09-10 14:10 | DCINST_ITS ---
Discharge Instructions Diet Discharge Diet: No restrictions Activity Discharge Activity: May Not Drive, May Shower (wear plastic bag over right hand when showering.) and - (no lifting with right hand. elevate right hand.) May shower in (days): 1 (wear plastic bag over right hand when showering.) May resume sexual activity in: 10-14 days Weight Bearing Status: Weight bearing as tolerated Lifting Restrictions: no lifting with right hand. Keep extremity elevated above heart level: Right Arm Dressing / Incision Call your doctor if your incision/area has: Continuous Slow Oozing, Sudden Increased Bleeding, Increased Pain/ Swelling, Increased Redness, Foul Smelling Discharge and Swelling at the incision site Call your doctor if you observe: Fever of 101 or Higher, Coldness, Increased Pain, Shortness of breath, Chest pain, Calf discomfort and Uncontrolled pain Change Dressing in: do not change dressing (will remove the operative dressing in the office.) Cleanse incision/area with: - (place plastic bag over right hand when showe ring.) Follow Up Care Please Follow Up With: Calvin Hill MD When: one week. call [phone] for appt. Test Results: Test results from this visit will be discussed in further detail at your follow-up appointment, if applicable. Discharge Plan Admission Primary Reason for Your Visit: repair extensor tendon and digital nerve right thumb Attending Provider: Calvin Hill Primary Care Provider: Dewayne Norris Discharge Orders/Prescriptions Prescriptions: New cefadroxil 500 mg capsule 500 mg PO BID Qty: 10 RF: 0 oxycodone-acetaminophen [Percocet] 5-325 mg tablet 1 tab PO Q6H PRN (Reason: pain (scale score 7-10)) 7 Days Qty: 28 RF: 0 Continued oxycodone-acetaminophen [Percocet] 5-325 mg tablet 1 tab PO Q6H PRN (Reason: pain) 3 Days Qty: 12 RF: 0 atomoxetine 100 mg capsule 100 mg PO DAILY RF: 0 Discontinued cefadroxil 1 gram tablet 1,000 mg PO BID 10 Days Qty: 20 RF: 0 Referrals / Follow Up: Dewayne Norris MD [Primary Care Provider] - Disposition Disposition (needs filled in before D/C Order can be placed): Home, Self Care
== END 2021-09-10 15:26 ==
LOC: SDC 09:56 → AC 09:57
PROVIDERS: PCP Family Medicine; Referring Provider Surgery; Visit Provider Surgery
PROC: (CPT 26418; principal; 2021-09-10 11:30)
DX: S66.221A Laceration of extensor muscle, fascia and tendon of right thumb at wrist and hand level, initial encounter (principal); S64.31XA Injury of digital nerve of right thumb, initial encounter; W29.8XXA Contact with other powered hand tools and household machinery, initial encounter; Y93.89 Activity, other specified; Y92.239 Unspecified place in hospital as the place of occurrence of the external cause; F17.210 Nicotine dependence, cigarettes, uncomplicated; J45.909 Unspecified asthma, uncomplicated
CPT/HCPCS: 01810; 26418; 64831; 87070; 87075; 87102; 87205; 87206; 87426; 88304; 88305; J7120; J2405

== ENCOUNTER 2021-10-21 08:30 | Outpatient (RCR) | payer MEDICAID, SELFPAY ==
--- NOTE | 2021-09-21 13:50 | HP.OTEVAL_ITS ---
Patient's Visit Information JOHN MARK is a 36 year old M, referred to Occupational Therapy by Shawanda Nelson, ANTHONY-C, with a diagnosis of right thumb laceration s/p EPL laceration Nerve laceration. Date of Evaluation: 09/21/21 Occupational Therapist: Danna Durand, KELLEY/Shayy, CHT - Subjective This 36 year old male was seen for OT eval with dx of right thumb laceration- pt states he was grinding a lock off a shed door and cut his thumb- 09/07/21- pt went to ER- pt underwent sx repair on 09/10/21. Pt states no pain- pt arrives to session Without surgical splint on- had a put a straight wooden piece on volar part of thumb tip to prevent from bending tip- (states he got his cast wet in shower and removed the surgical splint/cast three days ago). pt denies pain. pt states [place] and has concerns with when he can move. - Objective Concerns: pt removed sx splint. IP was in flexed position prior to therapist placing custom orthosis on. hand flat with attempt to raise thumb up off table pts thumb flexed vs extended - ROM IP: right 50*flexion when pts rigged splint was removed ROM Comments: hand flat with attempt to raise thumb up off table pts thumb flexed vs extended - Quick DASH-Disab of Arm,Shoulder& Hand Quick DASH Score: 20.0000 - Goals Goal:100% adherence to protocol: Yes Comment: EPL repair protocol Goal:Daily scar massage when approriate: Yes Goal:ROM equal to unaffected hand: Yes Goal:No pain with affected hand use: Yes Goal:Decrease scar hypersensitivity: Yes - Rehabilitation General Assessment: pt s/p 1 week and 4 days s/p from EPL and repair of ulnar sensory branch of superficial sensory radial nerve right thumb. Pt demo need for skilled OT services 1x week for 8 weeks to ensure recovery of pts ROM and strength of right thumb. Rehabilitation Potential: Good - Anticipated Interventions A/AAROM/PROM, Strengthening, Scar Care, Desensitization, Modalities, Orthoses, Joint Protection/Energy Conservation, Ergonomic Education, Fine Motor Coord/José Miguel, Education re Diagnosis, Caregiver Training - Visit Plan Frequency: 1-2x /Week Duration: 2 Months TEXT: Thank you for the opportunity to evaluate your patient. For Medicare and Medicare HMO plans, please review the plan of care and approve it. It will need to be FAXED BACK to us at [phone] for Medicare purposes. Please let me know if there are questions or concerns regarding this plan of c are. Physician Signature: Date:
--- NOTE | 2022-02-01 18:32 | HP.OT.NRP ---
JOHN MARK was seen in my office for initial evaluation on 09/21/21. The following Plan of Care was established for this patient: Initial Frequency: 1-2x /Week Initial Duration: 2 Months Plan: see pt in one week review EPL protocol unless pt needs orthosis to be adj. Anticipated Interventions: A/AAROM/PROM, Strengthening, Scar Care, Desensitization, Modalities, Orthoses, Joint Protection/Energy Conservation, Ergonomic Education, Fine Motor Coord/José Miguel, Education re Diagnosis, Caregiver Training This patient was last seen in our office 10/21/21. Pertinent comments regarding their Occupational therapy will appear below: pt was last seen 10/21/21 in OT - pt demo with rupture of repaired EPL- advised pt to return to Due to time lapse in services pt d/c. At this point I will be discontinuing this patient from occupational therapy. I would be happy to see this patient again in the future if found appropriate by the physician. Thank you! Danna Durand, OTR/L, CHT
== END 2021-10-21 19:00 | disposition home or self-care (01) ==
LOC: OT 08:30
PROVIDERS: PCP Family Medicine; Referring Provider Nurse Practitioner Family; Visit Provider Nurse Practitioner Family
DX: S64 Injury of nerves at wrist and hand level (principal); S60.221D Contusion of right hand, subsequent encounter; X58.XXXD Exposure to other specified factors, subsequent encounter; F17.200 Nicotine dependence, unspecified, uncomplicated
CPT/HCPCS: 97110; 97166; 97530; 97760; 97763

== ENCOUNTER 2021-11-06 15:28 | Outpatient (CLI) | payer MEDICAID, SELFPAY ==
[2021-11-06 17:43] LABS: Absolute Neutrophil Count 3.4 X10^3/uL (2.0-7.7); Basophil# 0.06 X10^3/uL; Basophil% 0.9 % (0-1); Eosinophil# 0.19 X10^3/uL; Eosinophils% 2.8 % (0-5); Hematocrit 44.7 % (40-54); Hemoglobin 15.4 g/dL (13.0-16.5); Lymphocyte % 32.7 % (19-41); Mean Corp Hgb Conc 34.5 g/dL (32-36); Mean Corpuscular Hgb 31.6 pg (27.0-32.0); Mean Corpuscular Volume 91.8 fL (80-94); Mean Platelet Vol. 11.5 fl (6.2-12.0); Monocyte# 0.91 X10^3/uL; Monocyte% 13.5 % (0-10); NRBC Flagged by Analyzer 0 % (0-5); Neutrophil # 3.35 X10^3/uL (2.7-7.7); Neutrophil % 49.8 % (47-70); Platelet Count 232 K/mm3 (150-450); RBC Distribution Width CV 12.7 % (11.6-14.6); RBC Distribution Width SD 42.5 fl (35.1-43.9); Red Blood Count 4.87 M/mm3 (4.6-6.2); White Blood Count 6.7 K/mm3 (4.4-11.0)
[2021-11-06 17:56] LABS: Vitamin B12 640 pg/mL (211-911); Vitamin D,25 Hydroxy 28.6 ng/mL
[2021-11-06 17:57] LABS: ALB/GLOB Ratio 1.1 RATIO (0.9-2.4); AST(SGOT) 44 U/L (15-37); Alanine Aminotransfer ALT/SGPT 50 U/L (16-61); Albumin, Serum 4.2 g/dL (3.2-5.0); Alkaline Phosphatase 97 U/L (45-117); Anion Gap 4 (5-15); BUN 21 mg/dL (7-18); BUN/Creat Ratio 25.1 RATIO (10-20); Calcium,Total 9.2 mg/dL (8.5-10.1); Chloride 102 mmol/L (98-107); Cholesterol 181 mg/dL (200); Creatinine, Serum 0.84 mg/dL (0.70-1.30); EST Glomerular Filtration Rate 110 mL/min (>60); Est Glom Filt Rate - Afr Amer 134 mL/min (>60); Globulin 3.9 g/dL (2.2-4.2); Glucose 111 mg/dL (74-106); High Density Lipoprotein 50 mg/dL; Protein, Total 8.1 g/dL (6.4-8.2); Sodium Level 133 mmol/L (136-145); T4 Free Direct 0.88 ng/dL (0.76-1.46); Thyroid Stim Hormone (TSH) 1.49 uIU/mL (0.358-3.74); Triglycerides 246 mg/dL; Very Low Density Lipoprotein 49 mg/dL (5-40)
== END 2021-11-06 23:59 | disposition home or self-care (01) ==
LOC: MFPLAB 15:30
PROVIDERS: PCP Family Medicine; Referring Provider Family Medicine; Visit Provider Family Medicine
DX: R53.83 Other fatigue (principal); E55.9 Vitamin D deficiency, unspecified
CPT/HCPCS: 36415; 80053; 80061; 82306; 82607; 84439; 84443; 85025

== ENCOUNTER 2021-12-03 17:49 | Outpatient (CLI) | payer MEDICAID, SELFPAY ==
--- NOTE | 2021-12-03 17:50 | MRI_ITS ---
EXAM: MR RIGHT THUMB WITHOUT INTRAVENOUS CONTRAST CLINICAL INDICATION: extensor tendon repair right thumb ?disruption TECHNIQUE: Multiplanar and multisequence MR images of the right thumb without intravenous contrast. This report was created using Snappy shuttle report generation technology. COMPARISON: None. FINDINGS: BONES/JOINTS: Susceptibility artifact along the dorsal aspect of the first digit from prior extensor tendon repair. There is irregularity and possible discontinuity involving the first extensor tendon at the level of the phalanx suggesting possible tearing. No fracture. No abnormal bone marrow signal. No joint effusion. MUSCLES: Muscles are unremarkable. OTHER SOFT TISSUES: Unremarkable. No solid or cystic mass. OTHER FINDINGS: No concerning marrow marrow signal alterations. Palmar aponeurosis is unremarkable as imaged. Neurovascular structures are unremarkable. MRI/Upper Ext/No Jt/ wo IMPRESSION: Irregularity and possible discontinuity involving the first extensor tendon at the level of the phalanx suggesting possible tearing. Electronically Signed: Cali Turner MD at 3:23 EDT ,
== END 2021-12-03 23:59 | disposition home or self-care (01) ==
LOC: MRI 17:50
PROVIDERS: PCP Family Medicine; Visit Provider Surgery
DX: T81.32XA Disruption of internal operation (surgical) wound, not elsewhere classified, initial encounter (principal); Z98.890 Other specified postprocedural states
CPT/HCPCS: 73218

== ENCOUNTER → 2023-12-15 | Outpatient (CLI) | payer MEDICAID, SELFPAY ==
[2023-12-15 12:19] LABS: Absolute Lymphocyte Count 2.09 X10^3/uL (0.83-4.51); Absolute Neutrophil Count 4.1 X10^3/uL (2.0-7.7); Basophil# 0.09 X10^3/uL; Basophil% 1.2 % (0-1); Eosinophils% 6.6 % (0-5); Hematocrit 41.7 % (40-54); Hemoglobin 13.9 g/dL (13.0-16.5); Lymphocyte # 2.09 X10^3/ul (0.83-4.51); Lymphocyte % 27.5 % (19-41); Mean Corp Hgb Conc 33.3 g/dL (32-36); Mean Corpuscular Volume 89.9 fL (80-94); Mean Platelet Vol. 11.9 fl (6.2-12.0); Monocyte% 10.5 % (0-10); NRBC Flagged by Analyzer 0 % (0-5); Neutrophil % 53.9 % (47-70); Platelet Count 207 K/mm3 (150-450); RBC Distribution Width SD 42.5 fl (35.1-43.9); Red Blood Count 4.64 M/mm3 (4.6-6.2); White Blood Count 7.6 K/mm3 (4.4-11.0)
[2023-12-15 12:32] LABS: Vitamin D,25 Hydroxy 32.4 ng/mL
[2023-12-15 12:57] LABS: ALB/GLOB Ratio 1.2 RATIO (0.9-2.4); AST(SGOT) 28 U/L (15-37); Alanine Aminotransfer ALT/SGPT 29 U/L (16-61); Albumin, Serum 3.8 g/dL (3.2-5.0); Alkaline Phosphatase 70 U/L (45-117); Anion Gap 4 (5-15); BUN 12 mg/dL (7-18); BUN/Creat Ratio 14.4 RATIO (10-20); Calcium,Total 8.8 mg/dL (8.5-10.1); Chloride 108 mmol/L (98-107); Cholesterol 137 mg/dL (200); Creatinine, Serum 0.83 mg/dL (0.70-1.30); EST Glomerular Filtration Rate 110 mL/min (>60); Est Glom Filt Rate - Afr Amer 133 mL/min (>60); Globulin 3.2 g/dL (2.2-4.2); Glucose 102 mg/dL (74-106); High Density Lipoprotein 44 mg/dL; Potassium 3.9 mmol/L (3.5-5.1); Sodium Level 138 mmol/L (136-145); Triglycerides 140 mg/dL; Very Low Density Lipoprotein 28 mg/dL (5-40)
== END | disposition home or self-care (01) ==
LOC: MFPLAB 09:20
PROVIDERS: PCP Family Medicine; Visit Provider Family Medicine
DX: F17.200 Nicotine dependence, unspecified, uncomplicated (principal); E55.9 Vitamin D deficiency, unspecified
CPT/HCPCS: 36415; 80053; 80061; 82306; 85025